=== PATIENT | male | born 2000 | race Caucasian/White ===

== ENCOUNTER 2024-09-08 15:16 | Outpatient (CLI) | payer BC, SELFPAY ==
--- OUTSIDE RECORDS SUMMARY | 2024-09-08 15:18 | XMS_ITS | Data Portability ---
Author Organization [place] - [facility] Address [address] [place] [address] Assessment Encounter Date Assessment Date Assessment LastModified by Organization Details LastModified Time 01/26/2019 01/26/2019 We discussed the diagnosis of spermatocele. We discussed options including conservative management With observation versus spermatocelecto my. He will observe symptoms for now. [email or web address] Not available 02/12/2019 16:34:46 Plan of Treatment Reminders Order Date Submit Date Provider Last Modified By Organization Details Last Modified Time Details Appointments None record ed. Lab urinal ysis, dipsti ck, auto 019 01/27/20 19 [email or web address] 4 Counts Include 234 Beds At [facility] [place] [facility], [address] [place] [address] Dr Morillo, [place], [address], 9 16:34:48 Referral None record ed. Procedures None record ed. Surgeries None record ed. Imaging None record ed. Medication Orders None record ed. Patient TargetsNo targets recorded. Patient Instructions Encounter Date Encounter Id Patient Instructions Last Modified By Organization Details Last Modified Time 01/26/2019 [id number] [place] [email or web address] Not available 02/12/2019 16:34:48 Quitting Tobacco : Care Instructions [email or web address] Not available 02/12/2019 16:34:48 healthy together [email or web address] Not availab le 02/12/2019 16:34:48 spermatocele: care instructions [email or web address] Not available 02/12/2019 16:34:48 Reason for Referral None Reported. Results Created Date Observation Date Name Description Value Unit Range Abnormal Flag Note LastModifiedBy Organization Detail LastModifiedTime 01/27/20 19 01/26/2019 urina lysis , dipst ick, auto Unknown Analyte Yellow Not Available [facility] With [address], [place], [address], 01/26/2019 13:50:00 01/27/20 19 01/26/2019 urina lysis , dipst ick, auto Unknown Analyte Clear Not Available [facility] With [address] [place], [address], 01/26/2019 13:50:00 01/27/20 19 01/26/2019 urina lysis , dipst ick, auto Unknown Analyte 1.020 Not Available [facility] With [address] [place], [address], 01/26/2019 13:50:00 01/27/20 19 01/26/2019 urina lysis , dipst ick, auto Unknown Analyte 1.003 - 1.035 Not Available [facility] With [address]illo, [place], [address], 01/26/2019 13:50:00 01/27/20 19 01/26/2019 urina lysis , dipst ick, auto Unknown Analyte 5.0 Not Available [facility] With [address] [place], [address], 01/26/2019 13:50:00 01/27/20 19 01/26/2019 urina lysis , dipst ick, auto Unknown Analyte 5.0 - 8.0 Not Available [facility] With [address], [place], [address], 01/26/2019 13:50:00 01/27/20 19 01/26/2019 urina lysis , dipst ick, auto Unknown Analyte Negati ve Not Available [facility] With [address], [place], [address], 01/26/2019 13:50:00 01/27/20 19 01/26/2019 urina lysis , dipst ick, auto Unknown Analyte Negati ve Not Available [facility] With [address] [place], [address], 01/26/2019 13:50:00 01/27/20 19 01/26/2019 urina lysis , dipst ick, auto Unknown Analyte Negati ve Not Available [facility] With [address], [place], [address], 01/26/2019 13:50:00 01/27/20 19 01/26/2019 urina lysis , dipst ick, auto Unknown Analyte Negati ve Not Available [facility] With [address], [place], [address], 01/26/2019 13:50:00 01/27/20 19 01/26/2019 urina lysis , dipst ick, auto Unknown Analyte Negtiv e Not Available [facility] With [address], [place], [address], 01/26/2019 13:50:00 01/27/20 19 01/26/2019 urina lysis , dipst ick, auto Unknown Analyte Negati ve - Trace Not Available [facility] With [address] [place], [address], 01/26/2019 13:50:00 01/27/20 19 01/26/2019 urina lysis , dipst ick, auto Unknown Analyte Normal Not Available [facility] With [address] [place], [address], 01/26/2019 13:50:00 01/27/20 19 01/26/2019 urina lysis , dipst ick, auto Unknown Analyte Normal Not Available [facility] With [address] [place], [address], 01/26/2019 13:50:00 01/27/20 19 01/26/2019 urina lysis , dipst ick, auto Unknown Analyte Negati ve Not Available [facility] With [address] [place], [address], 01/26/2019 13:50:00 01/27/20 19 01/26/2019 urina lysis , dipst ick, auto Unknown Analyte Negati ve Not Available [facility] With [address] [place], [address], 01/26/2019 13:50:00 01/27/20 19 01/26/2019 urina lysis , dipst ick, auto Unknown Analyte 1 mg/dl Not Available [facility] With [address] [place], [address], 01/26/2019 13:50:00 01/27/20 19 01/26/2019 urina lysis , dipst ick, auto Unknown Analyte Normal - 1mg/dl Not Available [facility] With [address] [place], [address], 01/26/2019 13:50:00 01/27/20 19 01/26/2019 urina lysis , dipst ick, auto Unknown Analyte 1 mg/dl (+) Not Available [facility] With [address] [place], [address], 01/26/2019 13:50:00 09/05/05 1901/26/2019 urina lysis , dipst ick, auto Unknown Analyte Negati ve Not Available [facility] With [address] [place], [address], 01/26/2019 13:50:00 01/27/2001/26/2019 urina lysis , dipst ick, auto Unknown Analyte Negati ve Not Available [facility] With [address] [place], [address], 01/26/2019 13:50:00 01/27/2001/26/2019 urina lysis , dipst ick, auto Unknown Analyte Negati ve Not Available [facility] With [address] [place], [address], 01/26/2019 13:50:00 01/27/2001/26/2019 urina lysis , dipst ick, auto Unknown Analyte Clean Catch Not Available [facility] With [address] [place], [address], 01/26/2019 13:50:00 01/27/2001/26/2019 urina lysis , dipst ick, auto Unknown Analyte Automa pavithra Not Available [facility] With [address] [place], [address], 01/26/2019 13:50:00 Result Notes None recorded. Procedures Surgical History Date Name Laterality Status Provider Name and Address Organization Details Recorded Time Tonsillectomy completed Justin [facility] 01/26/2019 13:49:20 Imaging Results None recorded. Procedure Notes None recorded. Medical Equipment None Reported. Allergies No known drug allergies Medications Not known to be on any medication Vitals Date Recorded Body height Body mass index (BMI) [Percentile] Per age and sex Body mass index (BMI) Body weight Systolic blood pressure Diastolic blood pressure Provider Name and Address Organization Details Last Updated DateTime 9 170.18 cm 97 % 32.9 kg/m2 89718.4 g 128 mm[Hg] 70 mm[Hg] Justin Pacheco [facility] 9 13:47:53 Social History Question Answer Notes LastModified by Organizat ion Details LastModified Time Tobacco Smoking Status Unknown If Ever Smoked Justin Pacheco [facility], [facility] 01/26/2019 13:48:51 How Much Tobacco Do You Chew? None [email or web address] Information not available 01/26/2019 Marital Status Single [facility] Informatio n not available 01/26/2019 Do You Or Have You Ever Used Smokeless Tobacco? Current Snuff User [facility] Information not available 01/26/2019 Sex: Unknown Functional Status None recorded. Mental Status None recorded. Family History Relationship Description Onset Age of this Age Resolved Age Notes LastModified by Organization Details LastModified Time Mother Diabetes mellitus [facility] Not available 2018 13:48:31 Unspecified Relation Kidney stone [facility]1 Not available 01/15 13:48:37 Medical History No medical history recorded. Past Encounters Encounter ID Performer Location Encounter Start Date Encounter Closed Date Diagnosis/Indication Diagnosis SNOMED-CT Code Diagnosis ICD10 Code Diagnosis Note [id number] RICARDO RUANO MD [address] [place] [address] 01/26/2019 13:38:57 02/13/2019 06:18:52 Tobacco user 236471801 Z72.0 Spermatocele 56533279 N4 3.40 Health Concerns Section Related Observation LastModified by Organization Detai ls LastModified Time None Recorded Concern Status LastModified by Organization Details LastModified Time None Recorded Advance Directives Directive None Recorded Payers Encounter Date Sequence Insurance Name Policy Number Policy Chawla Covered Member ID Chawla Member ID Guarantor Name 01/26/2019 1 [place] [id number] Michelle Jauregui [id number] Melvin Jauregui Notes Date Note Type Note Provider Name and Address Organization Details Recorded Time 01/26/2019 text/html 18-year-old male in the office for consultation and evaluation of 1 month history of left groin and scrotal pain. Symptoms occur intermittently, with radiation to left lower quadrant. No aggravating or alleviating symptoms. He voids every 2 hours without nocturia. He denies hesitancy, urgency, hematuria, dysuria. RICARDO RUANO MD [address] [place] [address], [address], [facility] 02/12/2019 16:36:46
[2024-09-08 16:29] LABS: Semen Viscosity Normal (Normal); Sperm Count 51 mil/mm3 (20-160); Sperm Motility 80 % (50-90); WBCs,Semen Small
[2024-09-08 16:30] LABS: Motility Quality Rapid Progression (Mod-Rapid)
[2024-09-08 20:00] LABS: 3Hr Motility Quality Rapid Progression (Mod-Rapid); 3Hr Sperm Motility 65 % (50-60)
[2024-09-08 20:03] LABS: Sperm Morphology N (Normal)
== END 2024-09-08 23:59 | disposition home or self-care (01) ==
PROVIDERS: PCP Nurse Practitioner Family; Visit Provider Obstetrics & Gynecology
DX: N46.9 Male infertility, unspecified (principal)
CPT/HCPCS: 89320